=== PATIENT | male | born 1950 | race Caucasian/White ===

== ENCOUNTER → 2021-04-16 12:14 | Outpatient (CLI) | payer MEDICARE, OTHER, SELFPAY ==
[2021-04-16 20:18] LABS: Hematocrit 48.2 % (41-53); Hemoglobin 16.3 g/dL (13.5-17.5)
[2021-04-16 20:24] LABS: Hemoglobin A1C% w Est Avg Glu 5.6 % (4.0-6.0)
[2021-04-16 20:36] LABS: Vitamin D 25 Hydroxy (D3) 74.3 ng/mL (30.0-100.0)
[2021-04-16 20:39] LABS: Free T3, Triiodothyronine Free 4.61 pg/mL (2.77-5.27)
[2021-04-16 20:52] LABS: Cortisol Random 12.7 ug/dL; Estradiol, Total 20.5 pg/mL; Thyroid Stimulating Hormone 1.08 uIU/mL (0.47-4.68)
[2021-04-16 20:54] LABS: Testosterone > 2160 ng/dL (71.8-623)
[2021-04-16 21:10] LABS: Vitamin B12 966 pg/mL (239-931)
[2021-04-19 20:11] LABS: IGF-1 124 ng/mL (53-222)
== END ==
PROVIDERS: PCP Physician Assistant Medical; Visit Provider Internal Medicine
DX: Z63.79 Other stressful life events affecting family and household (principal); Z68.28 Body mass index [BMI] 28.0-28.9, adult
CPT/HCPCS: 82306; 82533; 82607; 82627; 82670; 83036; 84305; 84403; 84439; 84443; 84481; 85014; 85018

== ENCOUNTER → 2021-11-17 09:36 | Outpatient (CLI) | payer MEDICARE, OTHER, SELFPAY ==
[2021-11-17 19:24] LABS: Add Manual Diff / Slide Review NO; Basophils Absolute Auto 0 /uL (0-100); Basophils Percent Auto 0.7 % (0-2); Eosinophils Absolute Auto 400 /uL (0-450); Eosinophils Percent Auto 5.4 % (2-4); Hematocrit 47.4 % (41-53); Hemoglobin 16.4 g/dL (13.5-17.5); Lymphocytes Absolute Auto 1900 /uL (1100-4500); Lymphocytes Percent Auto 28.8 % (25-40); Mean Corpuscular HGB Conc 34.6 % (30-36); Mean Corpuscular Hemoglobin 31.9 PG (26-34); Mean Corpuscular Volume 92.3 fL (80-100); Monocytes Absolute Auto 700 /uL (0-900); Monocytes Percent Auto 10.9 % (3-14); Neutrophils Absolute Auto 3600 /uL (1500-7000); Neutrophils Percent Auto 54.2 % (50-75); Platelet Count 140 X10^3/uL (150-400); Red Blood Cell Count 5.13 X10^6/uL (4.5-5.9); Red Cell Distribution Width 12.9 % (11.6-14.8); White Blood Cell Count 6.6 X10^3/uL (4.5-11.0)
[2021-11-17 19:33] LABS: Alanine Aminotransferase 25 IU/L (<50); Albumin 4.3 g/dL (3.5-5.0); Albumin Globulin Ratio 1.4 (1.0-2.8); Alkaline Phosphatase 92 U/L (38-126); Aspartate Aminotransferase 36 IU/L (17-59); Bilirubin Total 0.4 mg/dL (0.2-1.3); Blood Urea Nitrogen 21 mg/dL (9-20); Calcium 10.3 mg/dL (8.4-10.2); Carbon Dioxide 32 mmol/L (22-32); Chloride 102 mmol/L (98-107); Cholesterol 293 mg/dL (140-199); Estimated Glomerular Filt Rate > 60.0 mL/min (>60); Globulin 3.1 g/dL (1.7-4.1); Glucose 113 mg/dL (80-110); HDL Cholesterol 61 mg/dL (40-60); HEMOLYSIS < 15 (0-50); LDL Cholesterol Calculated 210 mg/dL (<100); Potassium 4.3 mmol/L (3.4-5.1); Sodium 138 mmol/L (137-145); Total Protein 7.4 g/dL (6.3-8.2); Triglycerides 109 mg/dL (35-150)
[2021-11-17 19:59] LABS: Prostate Specific Antigen Scrn 1.24 ng/mL (0.1-4.0)
[2021-11-17 20:00] LABS: TSH w/ Reflex to FT4 2.22 uIU/mL (0.47-4.68)
[2021-11-17 20:18] LABS: Vitamin B12 > 1000 pg/mL (239-931)
== END ==
PROVIDERS: PCP Physician Assistant Medical; Visit Provider Physician Assistant
DX: Z12.5 Encounter for screening for malignant neoplasm of prostate (principal); Z13.6 Encounter for screening for cardiovascular disorders; Z79.899 Other long term (current) drug therapy; F41.9 Anxiety disorder, unspecified; R25.3 Fasciculation
CPT/HCPCS: 80053; 80061; 82607; 84443; 85025; G0103

== ENCOUNTER → 2021-12-15 10:19 | Outpatient (CLI) | payer MEDICARE, OTHER, SELFPAY ==
[2021-12-15 19:28] LABS: Add Manual Diff / Slide Review NO; Basophils Absolute Auto 0 /uL (0-100); Basophils Percent Auto 0.3 % (0-2); Eosinophils Absolute Auto 500 /uL (0-450); Eosinophils Percent Auto 5.9 % (2-4); Hematocrit 46.8 % (41-53); Hemoglobin 15.8 g/dL (13.5-17.5); Lymphocytes Absolute Auto 2200 /uL (1100-4500); Lymphocytes Percent Auto 27.2 % (25-40); Mean Corpuscular HGB Conc 33.9 % (30-36); Mean Corpuscular Volume 91.5 fL (80-100); Monocytes Absolute Auto 700 /uL (0-900); Monocytes Percent Auto 9.2 % (3-14); Neutrophils Absolute Auto 4600 /uL (1500-7000); Neutrophils Percent Auto 57.4 % (50-75); Platelet Count 154 X10^3/uL (150-400); Red Blood Cell Count 5.11 X10^6/uL (4.5-5.9)
[2021-12-15 20:26] LABS: Influenza A - CEPHEID Flu A NEGATIVE (NEGATIVE); Influenza B - CEPHEID Flu B NEGATIVE (NEGATIVE)
[2021-12-15 20:32] LABS: COVID-19 CEPHEID PCR (VTM/NP) Negative (Negative)
[2021-12-23 09:12] LABS: Percent Free Testosterone 1.63 % (1.50-4.20); Testosterone Free 17.16 ng/dL (5.00-21.00); Testosterone Total 1052.7 ng/dL (264.0-916.0)
== END ==
PROVIDERS: PCP Physician Assistant Medical; Visit Provider Physician Assistant
DX: R05.3 Chronic cough (principal); J02.9 Acute pharyngitis, unspecified; R53.83 Other fatigue; E78.00 Pure hypercholesterolemia, unspecified; Z79.899 Other long term (current) drug therapy; E34.9 Endocrine disorder, unspecified
CPT/HCPCS: 0240U; 84402; 84403; 85025

== ENCOUNTER → 2022-01-23 09:31 | Outpatient (CLI) | payer MEDICARE, OTHER, SELFPAY ==
[2022-01-23 18:56] LABS: Alanine Aminotransferase 20 IU/L (<50); Albumin 4.2 g/dL (3.5-5.0); Albumin Globulin Ratio 1.4 (1.0-2.8); Alkaline Phosphatase 81 U/L (38-126); Aspartate Aminotransferase 33 IU/L (17-59); BUN Creatinine Ratio 17.6 (6-22); Bilirubin Total 0.6 mg/dL (0.2-1.3); Blood Urea Nitrogen 16 mg/dL (9-20); Calcium 9.4 mg/dL (8.4-10.2); Carbon Dioxide 28 mmol/L (22-32); Chloride 103 mmol/L (98-107); Cholesterol 266 mg/dL (140-199); Estimated Glomerular Filt Rate > 60 mL/min (>60); Globulin 2.9 g/dL (1.7-4.1); Glucose 100 mg/dL (80-110); HDL Cholesterol 45 mg/dL (40-60); HEMOLYSIS 19 (0-50); LDL Cholesterol Calculated 187 mg/dL (<100); Potassium 4.1 mmol/L (3.4-5.1); Sodium 137 mmol/L (137-145); Total Protein 7.1 g/dL (6.3-8.2); Triglycerides 169 mg/dL (35-150)
[2022-01-23 18:57] LABS: Magnesium 2.1 mg/dL (1.6-2.3)
== END ==
PROVIDERS: Internal Medicine Cardiovascular Disease; PCP Physician Assistant Medical; Visit Provider Physician Assistant
DX: I10 Essential (primary) hypertension (principal); E34.9 Endocrine disorder, unspecified; E78.00 Pure hypercholesterolemia, unspecified; Z79.899 Other long term (current) drug therapy
CPT/HCPCS: 80053; 80061; 83735

== ENCOUNTER → 2022-04-21 13:12 | Outpatient (CLI) | payer MEDICARE, OTHER, SELFPAY ==
[2022-04-21 20:20] LABS: Protein (Total) Urine Random 11 mg/dL (0-12)
[2022-04-21 20:43] LABS: TSH w/ Reflex to FT4 0.99 uIU/mL (0.47-4.68)
[2022-04-23 03:26] LABS: Total Protein 7.2 g/dL (6.3-8.2)
[2022-04-23 04:35] LABS: Folate > 20.0 ng/mL (2.76-20.0); Vitamin B12 783 pg/mL (239-931)
[2022-04-24 13:10] LABS: M-Spike % Not Observed % (Not Observed); Urine Total Protein 5.4 mg/dL (Not Estab.)
[2022-04-24 14:10] LABS: Albumin 3.9 g/dL (2.9-4.4); Alpha-1-Globulin 0.2 g/dL (0.0-0.4); Alpha-2-Globulin 0.7 g/dL (0.4-1.0); Gamma Globulin 0.8 g/dL (0.4-1.8); Globulin Total 2.8 g/dL (2.2-3.9); Protein, Total 6.7 g/dL (6.0-8.5)
== END ==
PROVIDERS: PCP Physician Assistant Medical
DX: R25.3 Fasciculation (principal); G60.3 Idiopathic progressive neuropathy; R53.83 Other fatigue
CPT/HCPCS: 82607; 82746; 84155; 84156; 84165; 84166; 84443

== ENCOUNTER → 2022-04-28 11:52 | Outpatient (CLI) | payer MEDICARE, OTHER, SELFPAY ==
[2022-04-28 20:31] LABS: Add Manual Diff / Slide Review NO; Basophils Absolute Auto 0 /uL (0-100); Basophils Percent Auto 0.3 % (0-2); Eosinophils Absolute Auto 300 /uL (0-450); Eosinophils Percent Auto 4.5 % (2-4); Hematocrit 39.2 % (41-53); Hemoglobin 13.5 g/dL (13.5-17.5); Lymphocytes Absolute Auto 1700 /uL (1100-4500); Lymphocytes Percent Auto 24.6 % (25-40); Mean Corpuscular HGB Conc 34.5 % (30-36); Mean Corpuscular Hemoglobin 32.2 PG (26-34); Mean Corpuscular Volume 93.3 fL (80-100); Monocytes Absolute Auto 700 /uL (0-900); Monocytes Percent Auto 9.6 % (3-14); Neutrophils Absolute Auto 4300 /uL (1500-7000); Platelet Count 175 X10^3/uL (150-400); Red Cell Distribution Width 13.1 % (11.6-14.8); White Blood Cell Count 7.1 X10^3/uL (4.5-11.0)
[2022-04-28 20:52] LABS: Alanine Aminotransferase 19 IU/L (<50); Albumin 4.3 g/dL (3.5-5.0); Albumin Globulin Ratio 1.6 (1.0-2.8); Alkaline Phosphatase 81 U/L (38-126); Amylase 98 U/L (30-110); Aspartate Aminotransferase 31 IU/L (17-59); BUN Creatinine Ratio 16.9 (6-22); Bilirubin Total 0.4 mg/dL (0.2-1.3); Blood Urea Nitrogen 13 mg/dL (9-20); Calcium 9.7 mg/dL (8.4-10.2); Carbon Dioxide 22 mmol/L (22-32); Chloride 104 mmol/L (98-107); Estimated Glomerular Filt Rate > 60 mL/min (>60); Globulin 2.7 g/dL (1.7-4.1); Glucose 106 mg/dL (80-110); HEMOLYSIS < 15 (0-50); Lipase 117 U/L (23-300); Potassium 4.4 mmol/L (3.4-5.1); Sodium 136 mmol/L (137-145)
== END ==
PROVIDERS: PCP Physician Assistant; Visit Provider Physician Assistant
DX: R10.9 Unspecified abdominal pain (principal); J02.9 Acute pharyngitis, unspecified; Z79.899 Other long term (current) drug therapy
CPT/HCPCS: 80053; 82150; 83690; 85025

== ENCOUNTER → 2022-05-08 10:22 | Outpatient (CLI) | payer MEDICARE, OTHER, SELFPAY ==
[2022-05-08 20:15] LABS: COVID19 - ORCAS (NP or Nasal) Negative (Negative)
== END ==
PROVIDERS: PCP Physician Assistant; Visit Provider Family Medicine
DX: Z20.822 Contact with and (suspected) exposure to COVID-19 (principal)
CPT/HCPCS: U0003

== ENCOUNTER → 2022-05-27 13:38 | Outpatient (CLI) | payer MEDICARE, OTHER, SELFPAY ==
[2022-05-30 20:36] LABS: Glucose-6-Phosphate Dehydrogen 285 (127-427)
== END ==
PROVIDERS: PCP Family Medicine; Visit Provider Naturopath
DX: A44.9 Bartonellosis, unspecified (principal); A69.20 Lyme disease, unspecified
CPT/HCPCS: 82955; 85041

== ENCOUNTER → 2022-06-16 14:29 | Outpatient (CLI) | payer MEDICARE, OTHER, SELFPAY ==
[2022-06-16 19:47] LABS: Add Manual Diff / Slide Review NO; Basophils Absolute Auto 0 /uL (0-100); Basophils Percent Auto 0.6 % (0-2); Eosinophils Absolute Auto 200 /uL (0-450); Eosinophils Percent Auto 2.4 % (2-4); Hematocrit 38.2 % (41-53); Hemoglobin 13.6 g/dL (13.5-17.5); Lymphocytes Absolute Auto 1900 /uL (1100-4500); Lymphocytes Percent Auto 23.6 % (25-40); Mean Corpuscular HGB Conc 35.6 % (30-36); Mean Corpuscular Hemoglobin 33.5 PG (26-34); Mean Corpuscular Volume 94.3 fL (80-100); Monocytes Absolute Auto 700 /uL (0-900); Monocytes Percent Auto 9.1 % (3-14); Neutrophils Absolute Auto 5300 /uL (1500-7000); Neutrophils Percent Auto 64.3 % (50-75); Platelet Count 160 X10^3/uL (150-400); Red Blood Cell Count 4.05 X10^6/uL (4.5-5.9); Red Cell Distribution Width 13.9 % (11.6-14.8); White Blood Cell Count 8.2 X10^3/uL (4.5-11.0)
[2022-06-16 20:07] LABS: Alanine Aminotransferase 22 IU/L (<50); Albumin 4.2 g/dL (3.5-5.0); Albumin Globulin Ratio 1.5 (1.0-2.8); Alkaline Phosphatase 86 U/L (38-126); Aspartate Aminotransferase 34 IU/L (17-59); BUN Creatinine Ratio 16.3 (6-22); Bilirubin Total 0.4 mg/dL (0.2-1.3); Blood Urea Nitrogen 13 mg/dL (9-20); Calcium 9.6 mg/dL (8.4-10.2); Carbon Dioxide 25 mmol/L (22-32); Chloride 100 mmol/L (98-107); Estimated Glomerular Filt Rate > 60 mL/min (>60); Globulin 2.8 g/dL (1.7-4.1); Glucose 101 mg/dL (80-110); HEMOLYSIS < 15 (0-50); Potassium 4.3 mmol/L (3.4-5.1); Sodium 132 mmol/L (137-145)
== END ==
PROVIDERS: PCP Family Medicine; Visit Provider Naturopath
DX: Z51.81 Encounter for therapeutic drug level monitoring (principal); B96.89 Other specified bacterial agents as the cause of diseases classified elsewhere
CPT/HCPCS: 80053; 85025

== ENCOUNTER → 2022-07-16 13:59 | Outpatient (CLI) | payer MEDICARE, OTHER, SELFPAY ==
[2022-07-19 13:18] LABS: Glucose-6-Phosphate Dehydrogen 626 (127-427)
== END ==
PROVIDERS: PCP Family Medicine
DX: A44.9 Bartonellosis, unspecified (principal); A69.20 Lyme disease, unspecified
CPT/HCPCS: 82955; 85041

== ENCOUNTER → 2022-08-13 13:39 | Outpatient (CLI) | payer MEDICARE, OTHER, SELFPAY ==
[2022-08-13 19:24] LABS: Add Manual Diff / Slide Review NO; Basophils Absolute Auto 0 /uL (0-100); Basophils Percent Auto 0.6 % (0-2); Eosinophils Absolute Auto 300 /uL (0-450); Eosinophils Percent Auto 4.8 % (2-4); Hemoglobin 14.2 g/dL (13.5-17.5); Lymphocytes Absolute Auto 2000 /uL (1100-4500); Lymphocytes Percent Auto 28.8 % (25-40); Mean Corpuscular HGB Conc 35.4 % (30-36); Mean Corpuscular Hemoglobin 34.5 PG (26-34); Mean Corpuscular Volume 97.5 fL (80-100); Monocytes Absolute Auto 900 /uL (0-900); Monocytes Percent Auto 12.3 % (3-14); Neutrophils Absolute Auto 3700 /uL (1500-7000); Neutrophils Percent Auto 53.5 % (50-75); Platelet Count 149 X10^3/uL (150-400); Red Blood Cell Count 4.11 X10^6/uL (4.5-5.9); Red Cell Distribution Width 14.5 % (11.6-14.8); White Blood Cell Count 6.9 X10^3/uL (4.5-11.0)
[2022-08-13 19:36] LABS: Alanine Aminotransferase 22 IU/L (<50); Albumin 4.2 g/dL (3.5-5.0); Albumin Globulin Ratio 1.4 (1.0-2.8); Alkaline Phosphatase 84 U/L (38-126); Aspartate Aminotransferase 33 IU/L (17-59); BUN Creatinine Ratio 17.8 (6-22); Bilirubin Total 0.3 mg/dL (0.2-1.3); Blood Urea Nitrogen 16 mg/dL (9-20); Carbon Dioxide 27 mmol/L (22-32); Chloride 100 mmol/L (98-107); Estimated Glomerular Filt Rate > 60 mL/min (>60); Globulin 2.9 g/dL (1.7-4.1); Glucose 80 mg/dL (80-110); HEMOLYSIS 23 (0-50); Potassium 4.5 mmol/L (3.4-5.1); Sodium 137 mmol/L (137-145); Total Protein 7.1 g/dL (6.3-8.2)
== END ==
PROVIDERS: PCP Family Medicine; Visit Provider Naturopath
DX: Z51.81 Encounter for therapeutic drug level monitoring (principal); B96.89 Other specified bacterial agents as the cause of diseases classified elsewhere
CPT/HCPCS: 80053; 85025

== ENCOUNTER → 2023-06-02 10:56 | Outpatient (CLI) | payer MEDICARE, OTHER, SELFPAY ==
[2023-06-02 20:11] LABS: Alanine Aminotransferase 21 IU/L (<50); Albumin 4.3 g/dL (3.5-5.0); Albumin Globulin Ratio 1.5 (1.0-2.8); Alkaline Phosphatase 76 U/L (38-126); Aspartate Aminotransferase 34 IU/L (17-59); BUN Creatinine Ratio 24.4 (6-22); Bilirubin Total 0.4 mg/dL (0.2-1.3); Blood Urea Nitrogen 19 mg/dL (9-20); Calcium 9.9 mg/dL (8.4-10.2); Carbon Dioxide 27 mmol/L (22-32); Chloride 103 mmol/L (98-107); Cholesterol 281 mg/dL (140-199); Estimated Glomerular Filt Rate > 60 mL/min (>60); Globulin 2.8 g/dL (1.7-4.1); Glucose 105 mg/dL (80-110); HDL Cholesterol 54 mg/dL (40-60); HEMOLYSIS 21 (0-50); LDL Cholesterol Calculated 189 mg/dL (<100); Sodium 138 mmol/L (137-145); Total Protein 7.1 g/dL (6.3-8.2); Triglycerides 192 mg/dL (35-150)
[2023-06-11 08:35] LABS: Percent Free Testosterone 2.24 % (1.50-4.20); Testosterone Total 473.1 ng/dL (264.0-916.0)
== END ==
PROVIDERS: PCP Family Medicine; Visit Provider Family Medicine
DX: I10 Essential (primary) hypertension (principal); E34.9 Endocrine disorder, unspecified; E78.5 Hyperlipidemia, unspecified; R01.1 Cardiac murmur, unspecified; R25.3 Fasciculation
CPT/HCPCS: 80053; 80061; 84402; 84403

== ENCOUNTER → 2023-09-29 11:49 | Outpatient (CLI) | payer MEDICARE, OTHER, SELFPAY ==
[2023-09-29 20:03] LABS: C-Reactive Protein Quant < 0.5 mg/dL (<1.0)
[2023-09-29 20:12] LABS: Erythrocyte Sedimentation Rate 7 MM/HR (0-15)
[2023-09-29 20:25] LABS: TSH w/ Reflex to FT4 1.68 uIU/mL (0.47-4.68)
== END ==
PROVIDERS: PCP Family Medicine; Visit Provider Physician Assistant Medical
DX: E04.1 Nontoxic single thyroid nodule (principal)
CPT/HCPCS: 84443; 85651; 86140

== ENCOUNTER → 2023-10-18 13:15 | Outpatient (CLI) | payer MEDICARE, OTHER, SELFPAY ==
--- NOTE | 2023-10-18 13:17 | DI.US.S_ITS ---
PROCEDURE: US THYROID INDICATIONS: THYROID NODULE TECHNIQUE: Real-time scanning was performed of the thyroid gland, with image documentation. COMPARISON: None. FINDINGS: Right: Thyroid lobe measures 4.6 x 1.9 x 1.7 cm, and is homogeneous in echotexture. Left: Thyroid lobe measures 3.7 x 1.6 x 1.2 cm, and is homogenous in echotexture. Isthmus: 2.7 cm thick. Nodule number: 1 Location: Left inferior Size: 0.7 x 0.6 x 0.4 cm. Composition: Predominantly solid Echogenicity: Hypoechoic Shape: wider than tall. Margins: Smooth Echogenic foci: None Total points: 4 ACR TI-RADS category: 4 IMPRESSION: Category 4 lesion. Secondary to size, no additional follow-up is recommended as below. ACR TI-RADS definitions and recommendations: TI-RADS 1 (benign): 0 points. FNA not needed. TI-RADS 2 (not suspicious): 2 points. FNA not needed. TI-RADS 3 (mildly suspicious): 3 points. * FNA if 2.5 cm or larger, follow up if 1.5 cm or larger (at 1, 3, and 5 years). TI-RADS 4 (moderately suspicious): 4-6 points. * FNA if 1.5 cm or larger, follow up if 1 cm or larger (at 1, 2, 3, and 5 years). TI-RADS 5 (highly suspicious): 7 points or more. * FNA if 1 cm or larger, follow up if 0.5 cm or larger (every year for 5 years). Dictated by: Alejandra Rojas M.D. on 10/18/2023 at 22:42 Approved by: Alejandra Rojas M.D. on 10/18/2023 at 22:43
== END ==
PROVIDERS: PCP Family Medicine; Referring Provider Physician Assistant Medical; Visit Provider Physician Assistant Medical
DX: E04.1 Nontoxic single thyroid nodule (principal)
CPT/HCPCS: 76536

== ENCOUNTER → 2024-03-23 10:29 | Outpatient (CLI) | payer MEDICARE, OTHER, SELFPAY ==
[2024-03-23 19:27] LABS: LDL Cholesterol Direct 140 mg/dL (<100)
== END ==
PROVIDERS: PCP Family Medicine; Visit Provider Internal Medicine Cardiovascular Disease
DX: E78.00 Pure hypercholesterolemia, unspecified (principal)
CPT/HCPCS: 83721

== ENCOUNTER → 2024-08-17 13:59 | Outpatient (CLI) | payer MEDICARE, OTHER, SELFPAY ==
[2024-08-17 19:48] LABS: Add Manual Diff / Slide Review NO; Basophils Absolute Auto 0 /uL (0-100); Basophils Percent Auto 0.3 % (0-2); Eosinophils Absolute Auto 200 /uL (0-450); Eosinophils Percent Auto 1.7 % (2-4); Hematocrit 37.5 % (41-53); Hemoglobin 13.1 g/dL (13.5-17.5); Lymphocytes Absolute Auto 1500 /uL (1100-4500); Lymphocytes Percent Auto 15.2 % (25-40); Mean Corpuscular Hemoglobin 33.6 PG (26-34); Mean Corpuscular Volume 95.9 fL (80-100); Monocytes Absolute Auto 600 /uL (0-900); Monocytes Percent Auto 5.8 % (3-14); Neutrophils Absolute Auto 7700 /uL (1500-7000); Platelet Count 141 X10^3/uL (150-400); Red Blood Cell Count 3.91 X10^6/uL (4.5-5.9); Red Cell Distribution Width 14.5 % (11.6-14.8)
[2024-08-17 19:54] LABS: Alanine Aminotransferase 21 IU/L (<50); Albumin 4.2 g/dL (3.5-5.0); Albumin Globulin Ratio 1.4 (1.0-2.8); Alkaline Phosphatase 122 U/L (38-126); Aspartate Aminotransferase 36 IU/L (17-59); BUN Creatinine Ratio 23.8 (6-22); Bilirubin Total 0.4 mg/dL (0.2-1.3); Blood Urea Nitrogen 20 mg/dL (9-20); Calcium 9.9 mg/dL (8.4-10.2); Carbon Dioxide 22 mmol/L (22-32); Chloride 103 mmol/L (98-107); Estimated Glomerular Filt Rate > 60 mL/min (>60); Globulin 2.9 g/dL (1.7-4.1); Glucose 103 mg/dL (80-110); HEMOLYSIS < 15 (0-50); Potassium 4.1 mmol/L (3.4-5.1); Sodium 133 mmol/L (137-145); Total Protein 7.1 g/dL (6.3-8.2)
== END ==
PROVIDERS: PCP Family Medicine; Visit Provider Internal Medicine Cardiovascular Disease
DX: I35.0 Nonrheumatic aortic (valve) stenosis (principal); R50.9 Fever, unspecified
CPT/HCPCS: 80053; 85025; 87040